=== PATIENT | female | born 2005 | race Caucasian/White ===

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

== ENCOUNTER 2024-08-26 03:48 | Emergency (ER) | payer OTHER ==
[~2024-08-26] VITALS: Ht 165.1 cm; Wt 66.2 kg
[2024-08-26 03:52] VITALS: BP 105/49; PULSE 58; RESP 16; TEMP 96.9; O2SAT 97
[2024-08-26 04:59] VITALS: BP 105/49; PULSE 58; RESP 16; O2SAT 97
[2024-08-26] MEDS ORDERED: ONDANSETRON 4 MG ODT ONE (05:28)
[2024-08-26] MEDS: ONDANSETRON 4 MG ODT PO ONE ×2 (05:31→06:47)
[2024-08-26] MEDS ORDERED: ALUMINUM HYD/MAG/SIMETHICONE 30 ML UDC ONE (06:18)
[2024-08-26] MEDS ORDERED: DICYCLOMINE HCL LIQUID 10 MG/5 ML UDC ONE (06:18)
[2024-08-26] MEDS: DICYCLOMINE HCL LIQUID 20 MG, ALUMINUM HYD/MAG/SIMETHICONE 30 ML, LIDOCAINE VISCOUS 2% ... PO ONE (06:25)
[2024-08-26] MEDS: KETOROLAC 60 MG/2 ML VIAL IM ONE (06:49)
[2024-08-26] MEDS ORDERED: IBUP-2213 PO (06:51)
[2024-08-26] MEDS ORDERED: ONDA8TAB87 PO (06:51)
== END 2024-08-26 06:59 | disposition home or self-care (01) ==
LOC: MED 03:48
DX: R10.13 Epigastric pain (principal); R11.2 Nausea with vomiting, unspecified; F12.90 Cannabis use, unspecified, uncomplicated; Z98.890 Other specified postprocedural states; Z79.899 Other long term (current) drug therapy
CPT/HCPCS: 76705; 96372; 99285; J1885; Q0092; Q0162